=== PATIENT | female | born 1950 | race Caucasian/White ===

== ENCOUNTER 2017-12-08 20:29 | Emergency (ER) | payer MEDICARE, OTHER ==
[2017-12-08 20:47] VITALS: BP 139/81
--- NOTE | 2017-12-08 21:31 | UC ---
Skin Complaint HPI - HPI Summary HPI Summary: Was walking on path in the [facility] earlier. Has a spot which is dark , on her right leg. May be a tick. - History of Current Complaint Chief Complaint: UCSkin Time Seen by Provider: 12/08/17 21:11 Stated Complaint: TICK Hx Obtained From: Patient ?: No - POst marlene Onset/Duration: Sudden Onset - noticed it a few min [employer] Skin Exposure Onset/Duration: Hours Ago Timing: Constant Onset Severity: Mild Current Severity: Mild Pain Intensity: 3 Location: Discrete - on medial , proximal right leg. Character: Pain - and looking dark. Aggravating Factor(s): Nothing Alleviating Factor(s): Nothing Associated Signs & Symptoms: Positive: Negative - none, but patient was hiking and wonders about this being a tick. Related History: Other: - Was walking in the [facility]. - Allergy/Home Medications Allergies/Adverse Reactions: Allergies Allergy/AdvReac Type Severity Reaction Status Date / Time azithromycin Allergy Hives Verified 12/08/17 20:44 Home Medications: Home Medications Calcium Carbonate [Calcium] 500 mg PO DAILY 12/08/17 [History Confirmed 12/08/17 ] Ibuprofen 600 mg PO DAILY 12/08/17 [History Confirmed 12/08/17] Review of Systems Constitutional: Negative Skin: Other - Possible tick on right leg Eyes: Negative ENT: Negative Respiratory: Negative Cardiovascular: Negative Gastrointestinal: Negative Genitourinary: Negative Motor: Negative Neurovascular: Negative Neurological: Negative Psychological: Negative Is Patient Immunocompromised?: No All Other Systems Reviewed And Are Negative: Yes PMH/Surg Hx/FS Hx/Imm Hx Previously Healthy: Yes - Surgical History Surgical History: Yes Surgery Procedure, Year, and Place: C-SECTIONS X4. COLONOSCOPIES - Social History Lives: With Family Alcohol Use: None Substance Use Type: None Smoking Status (MU): Never Smoked Tobacco Physical Exam - Summary Physical Exam Summary: 67 yo woman looking stated age and in NAD. Has a small, dark lesion on right medial leg. Triage Information Reviewed: Yes Appearance: Well-Appearing, No Pain Distress, Well-Nourished Vital Signs: Initial Vital Signs Temp 98.1 F 12/08/17 20:41 Pulse 76 12/08/17 20:41 Resp 16 12/08/17 20:41 BP 139/81 12/08/17 20:41 Pulse Ox 98 12/08/17 20:41 Vital Signs Reviewed: Yes Eyes: Positive: Conjunctiva Clear ENT Exam: Normal Dental Exam: Normal Neck exam: Normal Neck: Positive: Supple, Nontender, No Lymphadenopathy Respiratory Exam: Normal Respiratory: Positive: Chest non-tender, Lungs clear, Normal breath sounds Cardiovascular Exam: Normal Cardiovascular: Positive: RRR, No Murmur, Pulses Normal Abdominal Exam: Normal Abdomen Description: Positive: Nontender, No Organomegaly, Soft Bowel Sounds: Positive: Present Pelvic Exam: Positive: Other - NOt examined Musculoskeletal Exam: Normal Neurological Exam: Normal Neurological: Positive: Alert, Muscle Tone Normal Psychological Exam: Normal Skin: Positive: Other - 1/4 cm slightly raised , non tender blood blister.No evidence of tick or bite wound. Course/Dx - Diagnoses Provider Diagnoses: small blood bblister. NO ticks or open wounds Discharge - Sign-Out/Discharge Documenting (check all that apply): Patient Departure - Discharge Plan Condition: Stable Disposition: HOME Referrals: Non Staff,Doctor [Primary Care Provider] - Additional Instructions: Keep area clean .Observe for signs of infection at the site, such as redness, swelling, increased pain or pus. - Billing Disposition and Condition Condition: STABLE Disposition: Home
== END 2017-12-08 21:41 | disposition home or self-care (01) ==
LOC: UCCORT 20:29
DX: S80.821A Blister (nonthermal), right lower leg, initial encounter (principal); X58.XXXA Exposure to other specified factors, initial encounter; Y93.9 Activity, unspecified; Y99.9 Unspecified external cause status
CPT/HCPCS: 99201; G0463